=== PATIENT | male | born 1970 | race Hispanic/Latino ===

== ENCOUNTER 2017-01-09 08:10 | Emergency (ER) | payer OTHER ==
[2017-01-09 08:17] VITALS: RESP 16; TEMP 98.3
[2017-01-09 08:35] VITALS: BMI 27.8
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
[2017-01-09 09:19] VITALS: BP 140/78; PULSE 80; O2SAT 100
== END 2017-01-09 10:00 | disposition home or self-care (01) ==
LOC: ED 08:10
DX: M54.5 Low back pain (principal); G89.29 Other chronic pain
CPT/HCPCS: 99282; J1885